=== PATIENT | female | born 1955 | race Caucasian/White ===

== ENCOUNTER 2022-04-14 08:40 | Emergency (ER) | payer OTHER, SELFPAY ==
[2022-04-14] VITALS (12 sets, daily range): BP systolic 115–143; BP diastolic 55–69; PULSE 49–86; RESP 12–30; TEMP 36.5; O2SAT 97–100; BMI 26.2
--- NOTE | 2022-04-14 08:59 | DI.RAD.S_ITS ---
PROCEDURE: XR KNEE LT 1TO2V INDICATIONS: trip and fall, nonambulatory since TECHNIQUE: 2 views of the knee were acquired. COMPARISON: None. FINDINGS: Bones: Diffuse osteopenia. There is a minimally displaced fracture involving the lateral tibial plateau. Remainder of the visualized osseous structures appear intact. Tricompartmental degenerative changes of the left knee. No suspicious bony lesions. Soft tissues: Very small joint effusion. No suspicious soft tissue calcifications. IMPRESSION: 1. Minimally displaced lateral tibial plateau fracture of the left knee. 2. Tricompartmental osteoarthrosis of the left knee. 3. Very small joint effusion. Dictated by: Harsha Murphy M.D. on 04/14/2022 at 10:10 Approved by: Harsha Murphy M.D. on 04/14/2022 at 10:11
--- NOTE | 2022-04-14 08:59 | DI.RAD.S_ITS ---
PROCEDURE: XR TIBIA FIBULA LT 2V INDICATIONS: trip and fall, nonambulatory since TECHNIQUE: 2 views of the tibia and fibula were acquired. COMPARISON: None. FINDINGS: Bones: Only the distal 2/3 of the left tibia/fibula were imaged for this exam. Diffuse osteopenia. No definite fracture identified as images were obscured by artifact from overlying material outside the patient's body. Mild degenerative changes of the dorsal midfoot. Soft tissues: No suspicious soft tissue calcifications or masses. IMPRESSION: Left tibia/fibula without definite fracture. Study limited by artifact from overlying material outside the patient's body. Only the distal 2/3 of the tibia/fibula were image from this exam. Please see separate report of the left knee for evaluation of the proximal tibia/fibula. Dictated by: Harsha Murphy M.D. on 04/14/2022 at 10:12 Approved by: Harsha Murphy M.D. on 04/14/2022 at 10:15
--- NOTE | 2022-04-14 09:01 | PC.NURSE ---
air splint in place from ems
[2022-04-14] MEDS: ONDANSETRON 4 MG/2 ML INJ IV (09:38)
[2022-04-14] MEDS: HYDROMORPHONE 0.5 MG INJ IV (09:38)
--- NOTE | 2022-04-14 10:04 | ED.FALL ---
HPI - Fall General Chief Complaint: Fall Stated Complaint: Lt. leg/knee pain Time Seen by Provider: 04/14/22 09:11 Source: patient Mode of arrival: Ambulatory History of Present Illness HPI Narrative: Patient is a 66-year-old female who presents with left knee injury, she says she had both dogs on leashes last night and she fell down around 10:00 p.m.. She was not able to ambulate her had to pick her up. They waited until morning to call for help. She is transported off with the [facility]. She was given Dilaudid and Zofran by EMS. Still having some pain and nausea. No numbness tingling or weakness. No head injuries she is not on any anticoagulation. No other injury from her fall. Related Data Previous Rx's Medication Instructions Recorded hydrocodone 5 mg-acetaminophen 325 1 tab PO Q6H PRN pain #10 tabs 04/14/22 mg tablet Review of Systems Review of Systems Narrative: GENERAL: Denies chills,fever HEENT: Denies throat pain RESPIRATORY: Denies dyspnea, cough, wheezing CARDIOVASCULAR: Denies chest pain, palpitations GASTROINTESTINAL: Denies nausea, vomiting MUSCULOSKELETAL: SKIN: No rash, no laceration, no pruritus NEUROLOGIC: Denies weakness, dizziness, headache, numbness 8 point review of systems is negative except for those stated above and HPI Patient History Social History Smoking Status: Never smoker Smoking Status: Never smoker alcohol intake frequency: holidays/special occasions only Substance Use Type: does not use Exam Initial Vital Signs Initial Vital Signs: Vital Signs Temperature 97.7 F 04/14/22 08:40 Pulse Rate 57 L 04/14/22 08:40 Respiratory Rate 18 04/14/22 08:40 Blood Pressure 143/69 H 04/14/22 08:40 Pulse Oximetry 100 04/14/22 08:40 Oxygen Delivery Method 04/14/22 08:40 GENERAL: Pleasant alert 66-year-old female CARDIOVASCULAR: peripheral pulses in tact, cap refill <2 sec RESPIRATORY: No respiratory distress, speaks in full sentences without difficulty EXTREMITIES: Normal range of motion, no clubbing or edema. Neurovascularly intact Left lower extremity in [place] distal pedal pulse easily felt. NEUROLOGICAL: Cranial nerves II through XII grossly intact. Normal gait and speech. SKIN: Warm, dry, no petechiae, no rashes or lesions. Course Orders Ordered: Discontinued Medications Hydromorphone HCl (Hydromorphone 0.5 Mg Inj) 0.5 mg IV NOW ONE Stop: 04/14/22 09:05 Last Admin: 04/14/22 09:38 Dose: 0.5 mg Documented By: JASBIR Metoclopramide HCl (Metoclopramide 10 Mg/2 Ml Inj) 10 mg IV NOW ONE Stop: 04/14/22 10:15 Last Admin: 04/14/22 10:44 Dose: 10 mg Documented By: TAMICA Ondansetron HCl (Ondansetron 4 Mg/2 Ml Inj) 4 mg IV NOW ONE Stop: 04/14/22 09:05 Last Admin: 04/14/22 09:38 Dose: 4 mg Documented By: JASBIR Ondansetron HCl (Ondansetron 4 Mg Odt) 4 mg PO NOW ONE Stop: 04/14/22 12:53 Last Admin: 04/14/22 13:00 Dose: 4 mg Documented By: TAMICA(2) Vital Signs Vital signs: Vital Signs - 8 hr 04/14/22 12:00 04/14/22 12:00 04/14/22 12:30 Pulse Rate 51 L Respiratory Rate Blood Pressure 115/56 L 117/59 L Pulse Oximetry 98 04/14/22 12:30 Pulse Rate 50 L Respiratory Rate 20 Blood Pressure Pulse Oximetry 99 MDM - Fall Imaging Data Extremity x-ray #1: Radiologist's Impression: LARRY Butler [id number] XRay Report Signed Patient: Alexsandra Cedillo MR#: [id number] : 1955 Acct:[id number] Age/Sex: 66 / F Date of Service: 04/14/22 Loc: ED Accession Number: [id number] ?? Procedure: XR knee LT 1to2V Ordering Provider: Nellie Brand D.O. PROCEDURE:? XR KNEE LT 1TO2V ? INDICATIONS:? trip and fall, nonambulatory since ? TECHNIQUE:? 2 views of the knee were acquired.? ? COMPARISON:? None. ? FINDINGS:? ? Bones:? Diffuse osteopenia.? There is a minimally displaced fracture involving the lateral tibial plateau. Remainder of the visualized osseous structures appear intact.? Tricompartmental degenerative changes of the left knee.? No suspicious bony lesions.? ? Soft tissues:? Very small joint effusion.? No suspicious soft tissue calcifications.? ? ? IMPRESSION:? ? 1. Minimally displaced lateral tibial plateau fracture of the left knee. ? 2. Tricompartmental osteoarthrosis of the left knee. ? 3. Very small joint effusion.? ? ? Dictated by: Harsha Murphy M.D. on 04/14/2022 at 10:10 ? ? Extremity x-ray #2: Radiologist's Impression: Signed Patient: Alexsandra Cedillo MR#: [id number] : 1955 Acct:[id number] Age/Sex: 66 / F Date of Service: 04/14/22 Loc: ED Accession Number: [id number] ?? Procedure: XR tibia fibula LT 2V Ordering Provider: Nlelie Brand D.O. PROCEDURE:? XR TIBIA FIBULA LT 2V ? INDICATIONS:? trip and fall, nonambulatory since ? TECHNIQUE:? 2 views of the tibia and fibula were acquired.? ? COMPARISON:? None. ? FINDINGS:? ? Bones:? Only the distal 2/3 of the left tibia/fibula were imaged for this exam.? Diffuse osteopenia.? No definite fracture identified as images were obscured by artifact from overlying material outside the patient's body.? Mild degenerative changes of the dorsal midfoot. ? Soft tissues:? No suspicious soft tissue calcifications or masses.? ? IMPRESSION:? Left tibia/fibula without definite fracture.? Study limited by artifact from overlying material outside the patient's body.? Only the distal 2/3 of the tibia/fibula were image from this exam.? Please see separate report of the left knee for evaluation of the proximal tibia/fibula. ? ? Dictated by: Harsha Murphy M.D. on 04/14/2022 at 10:12 ?? ct LE: Radiologist's Impression: Signed Patient: Alexsandra Cedillo MR#: [id number] : 1955 Acct:[id number] Age/Sex: 66 / F Date of Service: 04/14/22 Loc: ED Accession Number: [id number] ?? Procedure: CT LE LT wo con Ordering Provider: Nellie Brand D.O. PROCEDURE:? CT LE LT W CON ? INDICATIONS:? tibial plateau fracture ? TECHNIQUE:? Noncontrast 1-1.5 mm axial sections acquired from the mid-patella to the proximal tibia, with coronal and sagittal reformats.? ? COMPARISON:? [facility], CR, XR KNEE LT 1TO2V, 04/14/2022, 9:19.? [facility], CR, XR TIBIA FIBULA LT 2V, 04/14/2022, 9:19. ? FINDINGS:? Image quality:? Excellent.? ? Bones:? There is generalized osteopenia.? A fracture is seen involving the posterior lateral tibial plateau.? The fracture fragment is proximally 2.3 x 1.1 cm. There is less than 1 mm step-off at the lateral tibial plateau articular surface.? No definite cortical fracture is seen at the tibial metaphysis. ? A congenitally shallow trochlear groove is seen with lateral patellar tilting without patellar subluxation.? Joint space narrowing with subchondral sclerosis and subchondral cystic changes are seen at the patellofemoral compartment.? Mild joint space narrowing is seen in the medial and lateral femorotibial compartments.? Tricompartmental marginal osteophytes are present. ? Soft tissues:? There is a moderate hemarthrosis.? The articular cartilages, menisci, ligaments, and tendons are not well evaluated with standard CT.? The musculature surrounding the knee is normal in bulk. ? IMPRESSION:? 1. Small lateral tibial plateau fracture is seen with less than 1 mm step-off at the posterior portion of the lateral tibial plateau articular surface. 2. Moderate hemarthrosis. 3. Tricompartmental osteoarthrosis is worst in the patellofemoral compartment.? 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 ? ? Dictated by: Florencio Garnica M.D. on 04/14/2022 at 11:43 ? ? Approved by: Florencio Garnica M.D. on 04/14/2022 at 11:49 ? [facility] Narrative Medical decision making narrative: Patient is found have a mild a tibial plateau fracture. Dr. Jacobson orthopedics has been consulted. Agrees with conservative management only. Will likely need a total knee arthroplasty at some point. Recommends nonweightbearing knee immobilizer and crutches. Patient lives in [place]. She is given a disc with her imaging. She had a right tibial plateau fracture pain she is familiar with the process Discharge Plan Departure Patient Disposition: Home Clinical Impression: Fracture, tibial plateau Qualifiers: Encounter type: initial encounter Fracture type: closed Instructions: DI for Tibial Plateau Fracture Activity Restrictions/Additional Instructions: *You have been diagnosed with left-sided tibial plateau fracture *What to do: At this time wear knee immobilizer, use crutches no weight-bearing elevate ice will take 6-8 weeks to heal *Continue to take medications as directed [place] 1 tablet every 6 hours if needed for severe pain *Follow up with your primary care provider in 2-3 days or call [phone] Call orthopedics tomorrow to schedule follow-up appointment *Return to ER if you should have increasing pain swelling numbness tingling or any new, worsening or concerning symptoms CONTROLLED SUBSTANCE DISCHARGE (Narcotoic/benzodiazepine/Flexeril/Phenergan) 1. You have been prescribed narcotic medications, it does have acetaminophen/Tylenol/paracetamol in it, DO NOT TAKE MORE THAN 4,00mg in 24 hours of Tylenol. TRAMADOL DOES NOT CONTAIN TYLENOL 2. Please understand that we cannot provide further refills of narcotics, benzodiazepines or controlled substances through the ED and her pain management will need to be through your provider. 3. While on these medications you cannot drive or operate heavy machinery. 4. You cannot sign legal documents or perform any duties such as this. 5. As long as you're taking opiate pain medications he should also be taking a stool softener such as Colace, Dulcolax, MiraLAX or prune juice, to help avoid constipation. Prescriptions: New hydrocodone-acetaminophen 5-325 mg tablet 1 tab PO Q6H PRN (Reason: pain) Qty: 10 0RF Referrals: [facility] [Provider Group] Visit Report Forms: Patient Portal/API
--- NOTE | 2022-04-14 10:29 | DI.CT.S_ITS ---
PROCEDURE: CT LE LT W CON INDICATIONS: tibial plateau fracture TECHNIQUE: Noncontrast 1-1.5 mm axial sections acquired from the mid-patella to the proximal tibia, with coronal and sagittal reformats. COMPARISON: [facility], CR, XR KNEE LT 1TO2V, 04/14/2022, 9:19. [facility], CR, XR TIBIA FIBULA LT 2V, 04/14/2022, 9:19. FINDINGS: Image quality: Excellent. Bones: There is generalized osteopenia. A fracture is seen involving the posterior lateral tibial plateau. The fracture fragment is proximally 2.3 x 1.1 cm. There is less than 1 mm step-off at the lateral tibial plateau articular surface. No definite cortical fracture is seen at the tibial metaphysis. A congenitally shallow trochlear groove is seen with lateral patellar tilting without patellar subluxation. Joint space narrowing with subchondral sclerosis and subchondral cystic changes are seen at the patellofemoral compartment. Mild joint space narrowing is seen in the medial and lateral femorotibial compartments. Tricompartmental marginal osteophytes are present. Soft tissues: There is a moderate hemarthrosis. The articular cartilages, menisci, ligaments, and tendons are not well evaluated with standard CT. The musculature surrounding the knee is normal in bulk. IMPRESSION: 1. Small lateral tibial plateau fracture is seen with less than 1 mm step-off at the posterior portion of the lateral tibial plateau articular surface. 2. Moderate hemarthrosis. 3. Tricompartmental osteoarthrosis is worst in the patellofemoral compartment. 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 Dictated by: Florencio Garnica M.D. on 04/14/2022 at 11:43 Approved by: Florencio Garnica M.D. on 04/14/2022 at 11:49
[2022-04-14] MEDS: METOCLOPRAMIDE 10 MG/2 ML INJ IV (10:44)
[2022-04-14] MEDS: ONDANSETRON 4 MG ODT PO (13:00)
== END 2022-04-14 13:10 | disposition home or self-care (01) ==
PROVIDERS: Emergency Provider Emergency Medicine
DX: S82.142A Displaced bicondylar fracture of left tibia, initial encounter for closed fracture (principal); W01.0XXA Fall on same level from slipping, tripping and stumbling without subsequent striking against object, initial encounter
CPT/HCPCS: 73560; 73590; 73700; 96374; 96375; 99284; J1170; J2405; J2765